=== PATIENT | male | born 1955 | race Caucasian/White ===

== ENCOUNTER 2019-07-02 14:56 | Outpatient (CLI) | payer BC, SELFPAY ==
--- NOTE | ~2019-07-02 | XR_ITS ---
EXAMINATION: XR hip RT 2V w AP pelvis, XR lumbar spine 2-3V DATE: 07/02/2019 15:27 INDICATION: Low back pain radiating down the right hip and leg. TECHNIQUE: 1. Anteroposterior view of the pelvis and anteroposterior and frog-leg lateral views of the right hip . 2. Anteroposterior, lateral views of the lumbar spine and cone-down lateral view of the lumbosacral j unction were obtained. COMPARISON: None. FINDINGS: Lumbar spine: 14 degrees dextroscoliosis measured between T11 and L4. 4 mm retrolisthesis L5 on S1 with fusion acro ss the disc space. Vertebral body heights are normal. Moderate disc height loss at L3-L4 and L4-L5. M ild left-sided disc height loss at L1-L2 and L2-L3. Mild to moderate lower lumbar predominant facet o steoarthritis. Pelvis: Alignment is normal. No fracture or suspected avascular necrosis. Mild osteoarthritis at the bilatera l sacroiliac joints. Bilateral hip joint spaces appear normal. There is chondrocalcinosis at the righ t acetabular labrum. There is ankylosis across the cephalad aspect of the pubic symphysis. IMPRESSION: 1. 14 degree lumbar dextroscoliosis with moderate spondylosis and anterior fusion at L5-S1. 2. Chondrocalcinosis at the right acetabular labrum with symmetric relatively preserved bilateral hip joint spaces. Reviewed, dictated and finalized at location A. TRIC FORK OPERATOR IMPRESSION: 1. 14 degree lumbar dextroscoliosis with moderate spondylosis and anterior fusi on at L5-S1. 2. Chondrocalcinosis at the right acetabular labrum with symmetric relatively p reserved bilateral hip joint spaces.
== END 2019-07-02 14:57 | disposition home or self-care (01) ==
LOC: ANHIMG 15:03
PROVIDERS: PCP Family Medicine; Visit Provider Family Medicine
DX: M47.896 Other spondylosis, lumbar region (principal); Z98.1 Arthrodesis status
CPT/HCPCS: 72100; 73502; 73521

== ENCOUNTER 2019-09-19 08:27 | Outpatient (CLI) | payer BC, SELFPAY ==
--- NOTE | ~2019-09-19 | MR_ITS ---
EXAMINATION: MR lumbar spine wo con DATE: 09/19/2019 09:56 INDICATION: Right leg sciatic pain. TECHNIQUE: Magnetic resonance imaging (MRI) of the lumbar spine was performed without intravenous con trast. Sequences included sagittal T2-weighted FSE, sagittal T2-weighted FS FSE, sagittal T1-weighted FSE, and axial T2-weighted FSE. COMPARISON: Lumbar spine radiographs 07/02/2019, pelvis and right hip radiographs 07/02/2019 FINDINGS: There is 11 degrees dextroscoliosis of lumbar spine. There are Schmorl's nodes at all level s. There is mild chronic anterior wedging of T12, L1, and L2 vertebral bodies, likely physiologic. Th ere is mildly decreased disc height at L3-L4 and L4-L5 and severely decreased disc height at L5-S1. T he distal spinal cord signal intensity is normal. The conus medullaris is at L1. Partially visualized is a cleft of increased T2-weighted signal intensity in right ilium. Partially visualized are cysts in left kidney including peripelvic cysts. The following disc levels are specifically discussed: L1-L2: The disc is bulging. There is mild bilateral facet joint osteoarthritis. There is mild bilater al neural foraminal stenosis. There is mild central canal stenosis. L2-L3: The disc is bulging. There is mild bilateral facet joint osteoarthritis. There is mild bilater al neural foraminal stenosis. There is mild central canal stenosis. L3-L4: The disc is bulging and has an annular fissure. There is moderate right and severe left facet joint osteoarthritis. There is moderate bilateral neural foraminal stenosis. There is mild central ca nal stenosis. L4-L5: The disc is bulging with superimposed right foraminal extrusion. There is mild bilateral facet joint osteoarthritis. There is severe right and moderate left neural foraminal stenosis. There is mi ld central canal stenosis. L5-S1: The disc is bulging and has an annular fissure. There is mild bilateral facet joint osteoarthr itis. There is mild bilateral neural foraminal stenosis. There is mild central canal stenosis. IMPRESSION: 1. Severe lumbar spondylosis. Of note, an extrusion at L4-L5 causes severe right neural foraminal eliane nosis. 2. Lumbar dextroscoliosis. 3. Partially visualized cleft of increased T2-weighted signal intensity in right ilium, which may be a fracture or postsurgical site. Consider noncontrast pelvis CT. Reviewed, dictated and finalized at location A. IMPRESSION: 1. Severe lumbar spondylosis. Of note, an extrusion at L4-L5 causes severe righ t neural foraminal stenosis. 2. Lumbar dextroscoliosis. 3. Partially visualized cleft of increased T2-weighted signal intensity in righ t ilium, which may be a fracture or postsurgical site. Consider noncontrast pel vis CT.
== END 2019-09-19 08:28 | disposition home or self-care (01) ==
PROVIDERS: Visit Provider Orthopaedic Surgery
DX: M54.31 Sciatica, right side (principal); M47.896 Other spondylosis, lumbar region; M41.86 Other forms of scoliosis, lumbar region
CPT/HCPCS: 72148

== ENCOUNTER 2021-06-29 07:20 | Outpatient (CLI) | payer BC, SELFPAY ==
--- NOTE | 2021-06-29 07:32 | ECHO_ITS ---
Patient Info Name: Riky Fong Age: 65 years : 1955 Gender: Male Ht: 74 in Wt: 224 lbs BSA: 2.32 m2 HR: 75 bpm BP: 146 / 82 mmHg Heart Rhythm: Sinus Rhythm Technical Quality: Good Exam Date: 06/29/2021 7:39 AM Exam Location: [facility] Patient Status: Outpatient Admit Date: 06/29/2021 Staff Ordering Physician: Ysabel Hill DO Custom Shoemaker: Chelly Rivera RDCS Attending Provider: Ysabel Hill DO Referring Physician: Liz HAYWARD; Exam Type: CA echo doppler color flow Study Info Indications R06.00 - Dyspnea, unspecified Complete two-dimensional, color flow and Doppler transthoracic echocardiogram is performed. Summary 1. Complete two-dimensional, color flow and Doppler transthoracic echocardiogram is performed. 2. Left ventricular chamber dimension is normal. 3. Left ventricular systolic function is normal, estimated at 60-65%. 4. The left ventricular diastolic function is grade II diastolic dysfunction. 5. E/e' 10 is mildly elevated. 6. There is trace tricuspid valve regurgitation. 7. No pulmonary hypertension, estimated pulmonary arterial systolic pressure is 27 mmHg. 8. There is trace pulmonic regurgitation. Left Ventricle E/e' 10 is mildly elevated. Left ventricular chamber dimension is normal. Left ventricular systolic function is normal, estimated at 60-65%. The left ventricular diastolic function is grade II diastolic dysfunction. Right Ventricle Right ventricular systolic function is normal and with normal TAPSE 2.8 cm. Right ventricular chamber dimension is normal. Left Atria Left atrial chamber dimension is normal. Right Atria Right atrial chamber dimension is normal. Aortic Valve The aortic valve is trileaflet. There is no aortic valve stenosis. There is no aortic valve regurgitation. Pulmonic Valve There is trace pulmonic regurgitation. Mitral Valve There is no mitral valve stenosis. There is no mitral valve regurgitation. Tricuspid Valve There is trace tricuspid valve regurgitation. No pulmonary hypertension, estimated pulmonary arterial systolic pressure is 27 mmHg. Pericardium/Pleural There is no pericardial effusion. Inferior Vena Cava Normal inferior vena cava with >50% collapse upon inspiration consistent with normal right atrial pressure, 5 mmHg. Aorta The aortic root size at the sinus of Valsalva is normal. Left Ventricular Outflow Tract Name Value Normal LVOT 2D LVOT Diameter 2.2 cm LVOT Doppler LVOT Peak Gradient 4 mmHg LVOT Mean Gradient 2 mmHg LVOT VTI 21 cm LVOT VTI/AV VTI Ratio 0.9 LVOT Stroke Volume 76 ml LVOT CO 4.9 l/min LVOT CI 2.1 l/min/m2 Pulmonic Valve Name Value Normal RVOT Doppler
== END 2021-06-29 07:21 | disposition home or self-care (01) ==
PROVIDERS: PCP Family Medicine; Visit Provider Family Medicine
DX: R06.00 Dyspnea, unspecified (principal)
CPT/HCPCS: 93306

== ENCOUNTER 2021-08-01 09:00 | Outpatient (CLI) | payer BC, SELFPAY ==
--- NOTE | 2021-08-01 11:00 | NEURO_ITS ---
Impression: # Complains of numbness of hands. # Bilateral Carpal Tunnel Syndrome, sensory more than motor. # No ulnar neuropathy. # Needle/EMG exam minimally neurogenic. Nerve Conduction Studies Anti Sensory Summary Table Stim Site NR Peak (ms) P-T Amp (?V) Site1 Site2 Delta-P (ms) Dist (cm) Vinicio (m/s) Left Median Anti Sensory (2-3nd Digit) Wrist 5.3 13.7 Wrist 2-3nd Digit 5.3 14.0 26 Wrist 5.7 9.5 Wrist 2-3nd Digit 5.3 14.0 26 Right Median Anti Sensory (2-3nd Digit) Wrist 6.2 19.2 Wrist 2-3nd Digit 6.2 14.0 23 Wrist 6.9 29.0 Wrist 2-3nd Digit 6.2 14.0 23 Left Radial Anti Sensory (Base 1st Digit) Wrist 2.7 5.8 Wrist Base 1st Digit 2.7 0.0 Right Radial Anti Sensory (Base 1st Digit) Wrist 2.9 11.0 Wrist Base 1st Digit 2.9 0.0 Left Ulnar Anti Sensory (5th Digit) Wrist 3.8 68.8 Wrist 5th Digit 3.8 14.0 37 Right Ulnar Anti Sensory (5th Digit) Wrist 3.4 43.0 Wrist 5th Digit 3.4 14.0 41 Motor Summary Table Stim Site NR Onset (ms) O-P Amp (mV) Site1 Site2 Delta-0 (ms) Dist (cm) Vinicio (m/s) Left Median Motor (Abd Poll Brev) Wrist 4.8 1.9 Elbow Wrist 5.8 30.0 52 Elbow 10.6 1.6 Right Median Motor (Abd Poll Brev) Wrist 4.4 1.9 Elbow Wrist 7.1 31.0 44 Elbow 11.5 2.1 Left Ulnar Motor (Abd Dig Minimi) Wrist 3.5 5.9 A Elbow Wrist 6.0 33.0 55 A Elbow 9.5 4.3 Right Ulnar Motor (Abd Dig Minimi) Wrist 3.3 5.4 A Elbow Wrist 5.8 31.0 53 A Elbow 9.1 4.0 F Wave Studies NR F-Lat (ms) L-R F-Lat (ms) Left Median (Mrkrs) (Abd Poll Brev) 35.02 0.59 Right Median (Mrkrs) (Abd Poll Brev) 35.61 0.59 Left Ulnar (Mrkrs) (Abd Dig Min) 33.33 0.53 Right Ulnar (Mrkrs) (Abd Dig Min) 33.86 0.53 EMG Side Muscle Nerve Root Ins Act Fibs Amp Dur Recrt Comment Right 1stDorInt Ulnar C8-T1 Nml Nml Nml Nml Nml Right Ext Indicis Radial (Post Int) C7-8 Nml Nml Nml Nml Nml Right Ext Digitorum Radial (Post Int) C7-8 Nml Nml Nml Nml Nml Right BrachioRad Radial C5-6 Nml Nml Nml Nml Nml Right PronatorTeres Median C6-7 Nml Nml Nml Nml Nml Right Abd Poll Brev Median C8-T1 Nml Nml Nml >12ms Reduced Left 1stDorInt Ulnar C8-T1 Nml Nml Nml Nml Nml Left Ext Indicis Radial (Post Int) C7-8 Nml Nml Nml Nml Nml Left Ext Digitorum Radial (Post Int) C7-8 Nml Nml Nml Nml Nml Left BrachioRad Radial C5-6 Nml Nml Nml Nml Nml Left PronatorTeres Median C6-7 Nml Nml Nml Nml Nml Left Abd Poll Brev Median C8-T1 Nml Nml Nml >12ms Reduced Right ABD Dig Min Ulnar C8-T1 Nml Nml Nml Nml Nml Right Abd Poll Long Radial (Post Int) C7-8 Nml Nml Nml Nml Nml Left ABD Dig Min Ulnar C8-T1 Nml Nml Nml Nml Nml Left Abd Poll Long Radial (Post Int) C7-8 Nml Nml Nml Nml Nml MTDD
== END 2021-08-01 09:01 | disposition home or self-care (01) ==
PROVIDERS: PCP Family Medicine; Visit Provider Internal Medicine Cardiovascular Disease
DX: R20.0 Anesthesia of skin (principal); G56.03 Carpal tunnel syndrome, bilateral upper limbs
CPT/HCPCS: 95886; 95911

== ENCOUNTER 2021-08-04 14:42 | Outpatient (CLI) | payer BC, SELFPAY ==
--- NOTE | 2021-08-07 10:44 | WPDPFTINT ---
PFT Procedure Performed PFT Procedure Performed Plethysmography (Lung Vol) Diffusing Cap (DLCO) Flow Vol Loop Spirometry w/o Bronchodil PFT Interpretation Lung volumes were measured with the body plethysmography method. Lung volumes are unremarkable. Spirometry showed normal expiratory flow rates and a normal FEV1 to FVC ratio 75%. No post bronchodilator study was carried out. Lung diffusion capacity is within the normal range at 94% predicted. The flow volume loop is unremarkable. Impression: Spirometry, lung volumes, and lung diffusion capacity all within the normal range.
== END 2021-08-04 14:43 | disposition home or self-care (01) ==
PROVIDERS: PCP Family Medicine; Visit Provider Internal Medicine Cardiovascular Disease
DX: R06.00 Dyspnea, unspecified (principal)
CPT/HCPCS: 94375; 94726; 94729

== ENCOUNTER 2021-11-15 02:04 | Day surgery (SDC) | payer BC, SELFPAY ==
[2021-11-14 11:07] VITALS: BMI 30.4
[2021-11-15] VITALS (26 sets, daily range): BP systolic 126–151; BP diastolic 67–86; PULSE 61–83; RESP 14–18; TEMP 36.4–36.8; O2SAT 96–100; BMI 31.0; BMI 31.7
[2021-11-15 07:27] LABS: Basophils Percent Auto 0.6 % (0.2-1.2); Eosinophils Absolute Auto 0.2 K/mm3 (0-0.3); Eosinophils Percent Auto 3.1 % (0-4.4); Hematocrit 45.3 % (42.0-52.0); Immature Granulocyte Absolute 0.04 K/mm3 (0.00-0.031); Immature Granulocyte Percent A 0.7 % (0-0.5); Lymphocytes Absolute Auto 1.35 K/mm3 (0.9-3.2); Lymphocytes Percent Auto 24.9 % (18.3-44.2); Mean Corpuscular HGB Conc 33.1 g/dl (32-36); Mean Corpuscular Hemoglobin 33.4 pg (26-34); Mean Corpuscular Volume 100.9 fl (80-100); Mean Platelet Volume 9.8 fl (7.4-10.4); Monocytes Absolute Auto 0.5 K/mm3 (0.1-0.6); Monocytes Percent Auto 9.2 % (2.6-8.5); Neutrophils Absolute Auto 3.3 K/mm3 (1.3-6.7); Neutrophils Percent Auto 61.5 % (45.5-73.1); Platelet Count Result 176 k/mm3 (150-375); Red Blood Count 4.49 M/mm3 (4.6-6.20); White Blood Count 5.4 K/mm3 (4.5-10.0)
[2021-11-15] MEDS: SODIUM CHLORIDE 0.9% IV 500 ML 100 ML IV CONT (07:30)
[2021-11-15 07:50] LABS: Anion Gap 5 mmol/L (8-16); Blood Urea Nitrogen 20 mg/dL (9-20); Calcium 9.1 mg/dL (8.4-10.2); Carbon Dioxide 28 mmol/L (22-30); Chloride 108 mmol/L (98-107); Estimated CRCL calculation 78 ml/min; Estimated Glomerular Filt Rate > 60; Glucose 105 mg/dL (65-110); Potassium 4.1 mmol/L (3.4-5.0); Sodium 141 mmol/L (137-145)
--- NOTE | 2021-11-15 08:28 | WPDHPUPDATE1 ---
History and Physical Update Update Date/Time: 11/15/21 08:28 History and Physical has been reviewed, including an updated exam of the patient. There are NO changes in the patient's condition. Risks, benefits, and alternatives have been discussed and questions answered. Patient agrees to proceed with procedure.
--- NOTE | 2021-11-15 08:29 | WPDMODSED ---
Moderate Sedation Note-Pt Data Patient Data Diagnosis: Abnormal stress test, anginal equivalent Present Complaint: none Procedure to be performed/Plan: left heart catheterization with selective left and right coronary angiography with left ventriculography and hemodynamics and possible percutaneous intervention and stent implantation. Allergies Allergy/AdvReac Type Severity Reaction Status Date / Time No Known Allergies Allergy Unknown Unknown Uncoded 11/15/21 07:19 Home Medications Medication Instructions Recorded Confirmed Type albuterol sulfate 90 mcg/actuation 2 inh inhalation Q4H PRN shortness 06/16/21 11/14/21 Rx aerosol inhaler of breath or wheezing #8.5 grams metoprolol succinate 25 mg 25 mg PO DAILY #90 tabs 07/04/21 11/14/21 Rx tablet,extended release 24 hr allopurinol 100 mg tablet 100 mg PO DAILY 11/14/21 11/14/21 History aspirin 81 mg tablet 81 mg PO DAILY 11/14/21 11/14/21 History ezetimibe 10 mg-simvastatin 20 mg 1 tablet PO DAILY 11/14/21 11/14/21 History tablet losartan 25 mg tablet 25 mg PO DAILY 11/14/21 11/14/21 History meloxicam 15 mg tablet 15 mg PO DAILY 11/14/21 11/14/21 History tamsulosin 0.4 mg capsule 0.4 mg PO HS 11/15/21 11/15/21 History Current Medications: Active Medications Sodium Chloride (Normal Saline Iv) 500 mls @ 100 mls/hr IV CONT .Q5H KAREN Sedation/Anesthesia: No previous sedation/anesthesia problems (including family history). [facility] Past Medical History Medical History Abnormal colonoscopy Hyperlipidemia Hypertension Hypertension Hypertension Prostate enlargement Prostatitis Testicular cancer Surgical History Surgical History History of orchiectomy Family History Family History Father Acute myocardial infarction, Onset Age: 46 Family history of cardiovascular disease Sibling Family history of lymphoma, Onset Age: 31 Social History Social History Smoking status: Never smoker Second hand tobacco smoke exposure: No Alcohol intake: current Drinks per week: 20 Alcohol use details: 2-3 drinks each day (beer). denies any history of withdrawal. can stop for a few days for procedures. 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 Spiritual care concerns: No Mod Sed Physical Exam Physical Exam Pre Procedural Exam: Normal: Appearance, Eyes, Ears, Nose, Neck ( supple, normal range of motion), Throat ( posterior hypopharynx clear, nonerythematous), Airway ( normal anatomy, no obstruction), Lungs ( Clear to auscultation bilaterally), Heart Size, Heart Rate, Heart Rhythm, Neuro Exam, Abdomen, Liver, Extremities and Skin Hours since solid foods: 12 Hours since liquid intake: 12 Mallampati Classification: class II Internal Medicine - PN: Obj Da Vital Signs Vital Signs: Vital Signs - 24 hr 11/15/21 07:21 Temperature 36.4 C L Pulse Rate 74 Respiratory Rate 16 Blood Pressure 146/79 H Pulse Oximetry 99 Oxygen Delivery Room Air Meds/Results Medications: Active Medications Generic Name Dose Route Start Last Admin Trade Name Freq PRN Reason Stop Dose Admin Sodium Chloride 500 mls @ 100 mls/hr 11/15/21 07:00 Normal Saline Iv IV CONT .Q5H KAREN Labs CBC & Chem 7: 11/15/21 07:17 11/15/21 07:17 Labs: Laboratory Results - last 24 hr 11/15/21 11/15/21 07:17 07:17 WBC 5.4 RBC 4.49 L Hgb 15.0 Hct 45.3 MCV 100.9 H MCH 33.4 MCHC 33.1 RDW 13.0 Plt Count 176 MPV 9.8 Immature Gran % (Auto) 0.7 H Neut % (Auto) 61.5 Lymph % (Auto) 24.9 Pope % (Auto) 9.2 H Eos % (Auto) 3.1 Baso % (Auto) 0.6 Lymph # (Auto) 1.35 Pope # (Auto) 0.5 Eos
--- NOTE | 2021-11-15 08:31 | PM.OP ---
Procedure Note - Brief Procedure Note - Brief Date of procedure: 11/15/21 Pre-op diagnosis: dyspnea on exertion, abonormal stress test anginal equivalent, abnormal stress test Procedure performed: left heart catheterization with selective left and right coronary angiography with left ventriculography and hemodynamics Description of procedure: BRIEF HISTORY OF PRESENT ILLNESS: Patient is a pleasant 66-year-old male with a past medical history significant hypertension, hyperlipidemia and premature family history of atherosclerosis with progressive fatigue exertional dyspnea on activity limitation with abnormal EKG response consistent with ischemia but with normal perfusion imaging concerning for possible balanced ischemia given progressive limiting symptoms subsequently referred for left heart catheterization for delineation of his coronary anatomy. PROCEDURES PERFORMED: 1. Left heart catheterization 2. Selective left and right coronary angiography 3. Left ventricular and hemodynamics 4. Moderate/conscious sedation administration CATHETERS UTILIZED: Left coronary system- 5 [place] JL4 catheter Right coronary system- 5 [place] JR4 catheter Left ventricular hemodynamics- 5 [place] angled pigtail catheter PROCEDURE IN DETAIL: After verbal and written informed consent was obtained the patient, risks, benefits, and alternatives explained in detail the patient agreed to proceed with the plan of care as outlined above. The patient was subsequently brought to the cardiac catheterization lab, placed on the cardiac catheterization table, and prepped and draped in the usual sterile fashion. Utilizing approximately 11cc of 1% subcutaneous Lidocaine, the right groin was then locally anesthetized. Utilizing the modified Seldinger technique, a 5 [place] arterial vascular access sheath was inserted in the right common femoral artery easily and without complications. Through this access, coronary angiography was subsequently obtained in multiple standard re-projections. Following this, a 5 [place] angled pigtail catheter was advanced retrograde across aortic valve into the cavity of the left ventricle. Left ventriculography was not performed in the interest of sparing contrast and pullback across aortic valve was subsequently recorded. The vascular access sheath and angiographic catheters were flushed before and after catheter exchanges. At the conclusion of the diagnostic portion of the procedure, all angiographic guidewires and catheters were removed and the 5 [place] arterial vascular access sheath remained in place pending decision to proceed with intervention with Dr. Aguirre (Interventional Cardiology). There no complications noted at the conclusion of the diagnostic portion of the study. MODERATE SEDATION/ANESTHESIA ADMINISTRATION: Patient reports no prior problems with sedation/anesthesia. Please see pre-sedation noted for physical examination documentation. Sedation start time was 0842 and end time was 0916 for a total intra-service/procedure face-face time of 34 minutes. A total of 1 mg intravenous Versed and a total of 50mcg intravenous Fentanyl was administered for moderate sedation. Moderate sedation was administered by qualified/certified observer Darius Howell RN under my supervision with intra-procedure [id number] observation and management throughout the entirety of the procedure. There were no other issues or complications and patient tolerated the procedure well. See post-anesthesia documentation. Anesthesia: local and other ( ) Surgeon: Garrison Renae MD Estimated blood loss (mL): 10 Complications: No immediate complications Condition: Stable Disposition: Observation Findings: CORONARY ANGIOGRAPHY: The LEFT MAIN arose from the left coronary cusp and revealed a proximal 10% stenosis. The left main then bifurcated into the left anterior descending artery and circumflex coronary artery. LEFT ANTERIOR DESCENDING ART
--- NOTE | 2021-11-15 10:31 | P.PCNCC_ITS ---
Cardiac Cath Procedure Note Date of procedure:: 11/15/21 Performing physician:: Quentin Aguirre MD Indication:: exertional angina / high-grade LAD disease Brief clinical history:: this is a 66-year-old man with a history of exertional chest pain and dyspnea compatible with angina. He just underwent diagnostic angiography by Dr. Renae finding high-grade disease in the LAD starting from the ostium and bridging over the origin of the major diagonal branch in addition to this there is 90% ostial stenosis of the diagonal. Because of this finding PCI of this has been recommended. Procedure Procedure performed:: PTCA and stenting of the ostial to proximal LAD as well as PTCA and stenting of the major diagonal Sedation/Medication given:: fentanyl 50 mg Versed 1 mg case start time 916 a.m. case end time 10:18 a.m. 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 I placed the access wire and the femoral artery and exchanged the sheath to a 7 [place] vascular sheath. Following this the patient was anticoagulated with a bolus and infusion of Angiomax and received 180 mg of Brilinta and 325 mg of aspirin. I engaged the left main coronary artery using a 7 [place] CLS 3.5 guiding catheter. The LAD was then wired using a 0.014 BMW coronary guidewire. A 2nd BMW wire was then used to access and wire the diagonal branch. Following this the LAD lesion was pre-dilated using a 3 x 20 mm Dariel Balloon. Angiographically the disease in the LAD was actually extending back to the ostium of the vessel which was not appreciated on the diagnostic angiograms. The LAD balloon was then withdrawn and the diagonal branch ostium was pre-dilated using a 2.5 x 15 mm balloon of the same type. The diagonal ostium was then stented using a 2.75 by 15 mm resolute cher stent. Following this the LAD was then dilated once again using a 2.5 x 15 mm Dariel balloon followed by the 3 x 20 mm balloon used previously. Lastly the LAD was stented from the ostium down to past the origin of the diagonal using a 3.0 x 22 mm resolute cher stent. Care was taken to position the stent both in the working cranial view as well as in the [place] caudal view tube position the beginning of the stent at the LAD ostium. Following stent deployment the LAD was widely patent from the ostium down to past the diagonal branch with no residual stenosis disruption or dissection. The diagonal branch also remained patent with PAL 3 flow. The guidewires were then removed and the procedure was terminated. This 7 [place] sheath will be sutured into position and pulled 2 hours after the Angiomax infusion is completed. Findings:: As above Conclusion:: 1. successful somewhat challenging but uncomplicated PCI of the ostium to proximal LAD and the origin of the diagonal branch using the 2 Resolute Cher drug-eluting stents described above with favorable angiographic outcome. 2. Patient has been started on aspirin and Brilinta dual anti-platelet therapy should be continued for the balance of 1 year minimum Quentin Aguirre MD [facility]
--- NOTE | 2021-11-15 10:43 | ECG_ITS ---
Measurements Intervals [place] Rate: 70 P: 47 DC: 142 QRS: 28 QRSD: 90 T: 55 QT: 395 QTc: 427 Interpretive Statements SINUS RHYTHM NORMAL ECG NO PREVIOUS ECG AVAILABLE FOR COMPARISON Electronically Signed On 11-15-2021 14:53:13 CDT by Garrison Renae M.D.
[2021-11-15] MEDS: SODIUM CHLORIDE 0.9% IV 1,000 ML 125 ML IV CONT (13:55)
--- NOTE | 2021-11-15 14:00 | SUR.PHASEII ---
HEMOSTASIS ACHIEVED TO R. GROIN PUNCTURE SITE AT 1300. DRESSING TO SITE C/D/I. BEDREST X 8 HOURS POST HEMOSTASIS UNTIL 2100. IVF'S RUNNING ORDERED AT 125ML/HR. 18FR. GRIFFITHS INTACT AND DRAINING CLEAR YELLOW URINE; PLACED AT 1130 SINCE UNABLE TO VOID IN URINAL ON BEDREST. POST PCI EKG COMPLETED AT 1046. HAS TOLERATED BEDREST WELL. DENIES PAIN OR SOB. DR. CHEN HERE TO SEE PT. PHASE II RECOVERY ENDS AT THIS TIME,1400. STATUS CHANGED TO EXTENDED RECOVERY POST C W/ PCI NOW. WILL REMAIN IN INSURANCE AGENTS SUPERVISOR 7 AT THIS TIME EXTENDED RECOVERY PT. SEE PCS FOR FURTHER DOCUMENTATION. WILL CONTINUE TO MONITOR.
--- NOTE | 2021-11-15 14:01 | ADMGEN ---
This patient, Riky Fong, was admitted to IMU STATUS, EXTENDED RECOVERY POST C W/ PCI FROM PHASE II RECOVERY AT 1401. REMAINS IN ARCHITECT NAVAL 7 AT THIS TIME. Patient/family oriented to hospital policies and general routines including ID bracelet, bed and alarms, visiting hours, pain management, procedures, bathroom and other care routines, personal items, smoking policy, room service/diet, and visiting hours. Information on how to activate the Rapid Response Team has been discussed. Patient/Family are encouraged to report perceived risks to care and to ask questions if they do not understand what they are told or what they should do.
--- NOTE | 2021-11-15 18:08 | PC.NURSE ---
Patient called out around 175 to report to RN that his left foot starting just above the ankle felt numb and like he had a cast on it. He reports that his right foot has felt similar since not being able to move it post cardiac catheterization and stent placement today but the left foot just started having more noticable symptoms this evening. Patient able to move both feet and plantar/dorsiflex. He had diminished sensation in bilateral feet and not able to distinguish sharp or dull sensation very well upon exam. Right DP pulse 2+ right PT 2-3+, left post tib 3+, left DP 1+bilaterally (pulss dopplers at 2+ on left and no changes compared to previous exam per Nette Gramajo RN. Toes and top of foot cool, slightly pale but unchanged, cap refill delayed but unchanged. Pulses did seem to improve with laying patient back some after he had been sitting up 30 degrees. Patient's was unable 180 Dr. Oc sandoval. He would like us to try to reposition patient after he finishes his meal to see if symptoms improve. Neurovascular checks q 1 hr x 2 hours then q 2 hours and to call with any changes. He would like ABIs order bilaterally for tomorrow AM.
--- NOTE | 2021-11-15 18:50 | PC.NURSE ---
REPORT CALLED TO ITZ PILLAI RN IN IMU. PT. IS TO TRANSFER TO IMU 203.1 VIA BED TO CONTINUE EXTENDED RECOVERY STAY POST [facility] W/ PCI TODAY. BEDREST CONTINUES UNTIL 2099. NO CHANGE IN STATUS OF R. GROIN. DRESSING C/D/I. PULSES, TEMPERATURE, SENSATION HAS RETURNED TO PT'S BASELINE IN BOTH R. AND LEFT FEET AFTER HOB LOWERED TO APPROX 15 DEGREES FROM NEAR 30 DEGREES. IVF'S CONTINUE AT 125ML/HR ORDERED. VOICES NO C/O CP OR SOB. VSS. BOTH PT. AND AWARE OF PENDING TRANSFER FOR OVERNIGHT STAY.
--- NOTE | 2021-11-15 19:15 | PC.NURSE ---
TRANSFERRED TO IMU 203.1 VIA BED ON TRANSPORT MONITOR AT THIS TIME. BEDSIDE REPORT UPDATES GIVEN TO ODALIS Blair RN ON ARRIVAL. ASSESSED R. GROIN STATUS ON ARRIVAL AND PALPATED BOTH R. AND L. FEET PULSES, TEMP WITH ODALIS BLANCO. ALL QUESTIONS ANSWERED. PT. AND VOICE NO CONCERNS.
[2021-11-15] MEDS: SIMVASTATIN 20 MG TABLET 40 MG PO (20:53)
[2021-11-15] MEDS: TAMSULOSIN HCL 0.4 MG CAPSULE PO (20:53)
[2021-11-15] MEDS: TICAGRELOR 90 MG TABLET PO (20:53)
[2021-11-16] VITALS (8 sets, daily range): BP systolic 121–155; BP diastolic 64–72; PULSE 66–77; RESP 18; TEMP 36.7–37.1; O2SAT 97–99
--- NOTE | 2021-11-16 05:11 | ECG_ITS ---
Measurements Intervals [place] Rate: 79 P: 44 IN: 139 QRS: 38 QRSD: 94 T: 64 QT: 384 QTc: 442 Interpretive Statements SINUS RHYTHM NORMAL ECG COMPARED TO ECG 11/15/2021 10:46:39 NO CHANGE Electronically Signed On 11-17-2021 16:19:15 CDT by Quentin Aguirre M.D.
[2021-11-16] MEDS: EZETIMIBE 10 MG TABLET PO (08:14)
[2021-11-16] MEDS: ASPIRIN 81 MG ENTERIC TABLET PO (08:14)
[2021-11-16] MEDS: METOPROLOL SUCCINATE EXT REL 25 MG TABCR PO (08:14)
[2021-11-16] MEDS: TICAGRELOR 90 MG TABLET PO (08:14)
[2021-11-16] MEDS: MELOXICAM 7.5 MG TABLET 15 MG PO (08:14)
[2021-11-16] MEDS: LOSARTAN POTASSIUM 25 MG TABLET PO (08:14)
--- NOTE | 2021-11-16 08:36 | PM.PNCARD ---
Progress Note: A&P Assessment and Plan (1) CAD (coronary artery disease): Qualifiers: Coronary Disease-Associated Artery/Lesion type: [place] artery [place] vs. transplanted heart: hughes heart Associated angina: without angina Qualified Code(s): I25.10 - Atherosclerotic heart disease of hughes coronary artery without angina pectoris Code(s): I25.10 - Atherosclerotic heart disease of [place]hes coronary artery without angina pectoris Status: Acute Assessment and Plan: Status post 3.0 x 22 mm resolute cher drug-eluting stent ostial LAD to proximal portion of mid segment jailing off diagonal initially stented with 2.75 x 15 mm resolute cher drug-eluting stent without complication. Continue dual antiplatelet therapy with aspirin 81 mg daily and Brilinta 90 mg twice daily without interruption. Cardiac rehabilitation as an outpatient in 1 month. Continue statin indefinitely Zetia for now. Continue beta-reuben and ARB. Counseled on risks, benefits with regards to medical therapy and importance of compliance due to risk for stent thrombosis and or acute myocardial infarction and associated complications. Patient verbalized understanding. Patient ambulating without difficulty overnight. No groin site complications. Patient stable for discharge home today follow-up in 1 month. Post catheterization precautions will be reviewed in detail once again. Notify the office with any questions or concerns. Counseled previously on potential side effects with shortness breath with Brilinta and how to discern the difference and report concerns. Patient agrees. (2) Hypertension: Qualifiers: Hypertension type: primary hypertension Qualified Code(s): I10 - Essential (primary) hypertension Code(s): I10 - Essential (primary) hypertension Status: Acute Assessment and Plan: Reasonable control. Continue present medical therapy. (3) Hyperlipidemia: Qualifiers: Hyperlipidemia type: mixed hyperlipidemia Qualified Code(s): E78.2 - Mixed hyperlipidemia Code(s): E78.5 - Hyperlipidemia, unspecified Status: Acute Assessment and Plan: Continue simvastatin and Zetia for now. Goal LDL less than 70. (4) LILIANE on CPAP: Code(s): G47.33 - Obstructive sleep apnea (adult) (pediatric); Z99.89 - Dependence on other enabling machines and devices Status: Acute Assessment and Plan: Compliance with CPAP. (5) Neuropathy: Code(s): G62.9 - Polyneuropathy, unspecified Status: Acute Assessment and Plan: Patient weight of numbness and paresthesias in the left foot resolved with position changes. His regular pulses, no evidence of vascular compromise or arterial insufficiency. Therefore, arterial Dopplers will be discontinued given the absence of preceding claudication and resolution of symptoms with position change with neuropathic symptoms brought on by prolonged bed rest status post percutaneous intervention. Subjective Date/time seen: Date of service: 11/16/21 08:36 Follow-up status post PCI to LAD Patient complained of numbness in left foot last night resolved with position change he feels is related to neuropathy. No pain in lower extremities. No claudication. No chest pain, shortness of breath, dizziness, palpitations or lightheadedness. No other issues overnight. No pain in right groin site. Review of Systems Review of Systems: Numbness in left foot resolved with position change no claudication, shortness of breath, chest pain. No fevers or chills. All systems reviewed & are unremarkable except as noted in HPI and below Constitutional: Constitutional: Reports as per HPI and Reports no additional constitutional complaints Eyes: Eyes: Reports as per HPI and Reports no additional eye complaints ENT: Reports system reviewed and no additional complaints, except as documented and Reports as per HPI Cardiovascular: Cardiovascular: Reports as p
--- NOTE | 2021-11-16 10:09 | PM.DS ---
DS: Admitting Diagnosis Discharge Date 11/16/2021 Admitting Diagnosis CAD DS: Discharge Diagnosis Discharge Diagnosis (1) CAD (coronary artery disease): Qualifiers: Associated angina: without angina Coronary Disease-Associated Artery/Lesion type: [place] artery [place] vs. transplanted heart: [place] heart Qualified Code(s): I25.10 - Atherosclerotic heart disease of [place] coronary artery without angina pectoris Code(s): I25.10 - Atherosclerotic heart disease of [place] coronary artery without angina pectoris Status: Acute Assessment and Plan: Status post 3.0 x 22 mm resolute cher drug-eluting stent ostial LAD to proximal portion of mid segment jailing off diagonal initially stented with 2.75 x 15 mm resolute cher drug-eluting stent without complication. Continue dual antiplatelet therapy with aspirin 81 mg daily and Brilinta 90 mg twice daily without interruption. Cardiac rehabilitation as an outpatient in 1 month. Continue statin indefinitely Zetia for now. Continue beta-reuben and ARB. Counseled on risks, benefits with regards to medical therapy and importance of compliance due to risk for stent thrombosis and or acute myocardial infarction and associated complications. Patient verbalized understanding. Patient ambulating without difficulty overnight. No groin site complications. Patient stable for discharge home today follow-up in 1 month. Post catheterization precautions will be reviewed in detail once again. Notify the office with any questions or concerns. Counseled previously on potential side effects with shortness breath with Brilinta and how to discern the difference and report concerns. Patient agrees. (2) Hypertension: Qualifiers: Hypertension type: primary hypertension Qualified Code(s): I10 - Essential (primary) hypertension Code(s): I10 - Essential (primary) hypertension Status: Acute Assessment and Plan: Reasonable control. Continue present medical therapy. (3) Hyperlipidemia: Qualifiers: Hyperlipidemia type: mixed hyperlipidemia Qualified Code(s): E78.2 - Mixed hyperlipidemia Code(s): E78.5 - Hyperlipidemia, unspecified Status: Acute Assessment and Plan: Continue simvastatin and Zetia for now. Goal LDL less than 70. (4) LILIANE on CPAP: Code(s): G47.33 - Obstructive sleep apnea (adult) (pediatric); Z99.89 - Dependence on other enabling machines and devices Status: Acute Assessment and Plan: Compliance with CPAP. (5) Neuropathy: Code(s): G62.9 - Polyneuropathy, unspecified Status: Acute Assessment and Plan: Patient weight of numbness and paresthesias in the left foot resolved with position changes. His regular pulses, no evidence of vascular compromise or arterial insufficiency. Therefore, arterial Dopplers will be discontinued given the absence of preceding claudication and resolution of symptoms with position change with neuropathic symptoms brought on by prolonged bed rest status post percutaneous intervention. DS: Summary Hospital Course Hospital Course: Admitted yesterday following elective coronary angiogram and PCI. Remained stable throughout and following procedure. No complications. Has been placed on DAPT. Stable this morning and appropriate for hospital discharge. Time Spent with Patient Time attestation: Total time spent providing and/or coordinating discharge services: Exam Narrative: General: Well developed, alert and oriented x3. No apparent distress, comfortable, pleasant, and cooperative. Head: atraumatic, normocephalic Eyes: EOM intact, sclerae anicteric, conjunctivae unremarkable Ears/Nose: external inspection of ears and nose were grossly normal Mouth/Throat: oral mucosa pink and moist Neck: supple, normal range of motion, no jugular venous distention or carotid bruits, thyroid nonpalpable, trachea midline. Cardiac: Regular rat
== END 2021-11-16 11:44 | disposition home or self-care (01) ==
LOC: ANHCATHLAB 06:54 → ANHCPC 14:11 → ANHIMU 19:58
PROVIDERS: Specialist; PCP Family Medicine; Visit Provider Internal Medicine Cardiovascular Disease
PROC: 4A023N7 Measurement of Cardiac Sampling and Pressure, Left Heart, Percutaneous Approach (ICD-10-PCS; CPT 93452; principal; 2021-11-15 08:30)
DX: I25.10 Atherosclerotic heart disease of native coronary artery without angina pectoris (principal); R06.00 Dyspnea, unspecified; I10 Essential (primary) hypertension; Z79.51 Long term (current) use of inhaled steroids; G47.33 Obstructive sleep apnea (adult) (pediatric); G62.9 Polyneuropathy, unspecified; E78.2 Mixed hyperlipidemia; Z82.49 Family history of ischemic heart disease and other diseases of the circulatory system; N41.9 Inflammatory disease of prostate, unspecified; Z79.82 Long term (current) use of aspirin; N40.0 Benign prostatic hyperplasia without lower urinary tract symptoms; Z85.47 Personal history of malignant neoplasm of testis
CPT/HCPCS: 36415; 80048; 85025; 93005; 93458; A9270; C1725; C1769; C1874; C1887; C1894; C9600; C9601; J0583; J1644; J2250; J3010; J7030; J7040

== ENCOUNTER 2022-02-16 14:04 | Outpatient (CLI) | payer BC, SELFPAY ==
--- NOTE | ~2022-02-16 | CT_ITS ---
EXAMINATION: CT abdomen pelvis wo/w con DATE: 02/16/2022 14:56 INDICATION: Microscopic hematuria TECHNIQUE: Computed tomography (CT) of the abdomen and pelvis was performed without and subsequently with 130 CC Omnipaque 350 intravenous contrast. Automated exposure control and iterative reconstructi on technique were employed. Exam dose: 1500.36 mGy-cm total exam DLP. COMPARISON: None. FINDINGS: New infiltrate or consolidation at the lung bases. Probable small calcified granuloma, left lower lobe. Normal heart size. No pericardial or pleural effusion. There are 2 subtle nonspecific ill-defined areas of diminished attenuation along the periphery of the right hepatic lobe, measuring 11 mm (series 7 image 54) and approximately 14 mm (image 68). No prior examination is available for comparison. Differential diagnosis includes hemangiomas, cysts, focal a reas of fat infiltration, less likely metastases. Consider hepatic MR examination. No hepatic space-o ccupying mass lesion is noted otherwise. The gallbladder is unremarkable. No bile duct or pancreatic duct dilatation. No pancreatic mass lesio n or calcification is noted. Normal splenic size. Normal morphology of the adrenal glands. No urinary tract calculus or hydroureteronephrosis. 1.5 cm right renal cyst. There are multiple left parapelvic and exophytic mid posterior renal cysts, measuring up to 4 cm or more maximal dimension. Prostate enlargement and multiple prostate calcifications. There is moderate diffuse thickening of th e urinary bladder wall, likely due to the prostate enlargement. There are innumerable diverticula of the sigmoid and descending colon and numerous diverticula of the transverse and to a lesser extent ascending colon. No CT evidence of diverticulitis. No bowel obstru ction or significant abnormal bowel wall thickening, pneumatosis or intraperitoneal free air is detec clarence. Diffuse idiopathic skeletal hyperostosis of the thoracic spine. Multilevel degenerative disc disease of the lumbar spine, particularly severe at L5-S1. No suspicious osteolytic or osteoblastic lesions are noted. IMPRESSION: Bilateral renal cysts No urinary tract calculus or hydroureteronephrosis Prostate enlargement and calcifications Diverticulosis of the colon; no CT evidence of diverticulitis 2. Subtle nonspecific areas of diminished attenuation of the right hepatic lobe, measuring 11 and 14 mm; consider MRI liver examination Reviewed, dictated and finalized at [facility]. Reviewed, dictated and finalized at location [facility]. IMPRESSION: Bilateral renal cysts No urinary tract calculus or hydroureteronephrosis Prostate enlargement and calcifications Diverticulosis of the colon; no CT evidence of diverticulitis 2. Subtle nonspecific areas of diminished attenuation of the right hepatic lobe , measuring 11 and 14 mm; consider MRI liver examination
[2022-02-16 14:37] LABS: Estimated Glomerular Filt Rate > 60
== END 2022-02-16 14:05 | disposition home or self-care (01) ==
PROVIDERS: PCP Family Medicine; Visit Provider Physician Assistant
DX: R31.29 Other microscopic hematuria (principal); N28.1 Cyst of kidney, acquired; N40.0 Benign prostatic hyperplasia without lower urinary tract symptoms; K57.90 Diverticulosis of intestine, part unspecified, without perforation or abscess without bleeding; R93.2 Abnormal findings on diagnostic imaging of liver and biliary tract
CPT/HCPCS: 74178; Q9967

== ENCOUNTER 2022-03-05 09:39 | Outpatient (CLI) | payer BC, SELFPAY ==
--- NOTE | ~2022-03-05 | MR_ITS ---
EXAMINATION: MR abdomen wo/w con DATE: 03/05/2022 10:57 INDICATION: Nonspecific liver lesions on prior CT TECHNIQUE: Magnetic resonance imaging (MRI) of the abdomen was performed without and with 20 mL Multi felecia intravenous contrast. Sequences included coronal T2-weighted SS-FSE, coronal and axial FS 2D-F IESTA, axial STIR FSE, axial T2-weighted SS-FSE, axial T2-weighted FS SS-FSE, axial diffusion-weighte d SE, axial dual-echo T1-weighted FSPGR, and axial and coronal T1-weighted LAVA. Postcontrast axial T 1-weighted LAVA images were obtained in a time course. Postcontrast coronal T1-weighted LAVA images w ere obtained. COMPARISON: CT dated 02/16/2022 FINDINGS: Heart size is normal. No pericardial or pleural effusion. Again seen are couple small lesions in the right hepatic lobe, the larger and more anteroinferior measuring 1.4 cm and a smaller more cephalad a nd posterior measuring 1 cm. Both are T2 hyperintense, T1 hypointense and demonstrating mild delayed enhancement which remains low in signal intensity in the surrounding hepatic parenchyma on the delaye d images. Bilateral nonenhancing T2 hyperintense renal cysts, the largest a 7.9 x 3.3 cm parapelvic c yst at the mid left kidney. There is likely secondary mild caliectasis at the upper pole of the left kidney. Gallbladder, pancreas, spleen and bilateral adrenal glands are normal. Visualized portion of the bowels are unremarkable. No pathologically enlarged abdominal lymphadenopathy. Mild thoracolumbar dextroscoliosis with severe lumbosacral and moderate lumbar and lower thoracic spondylosis. IMPRESSION: 1. A couple lesions measuring 1.4 cm 1 cm in the right hepatic lobe which demonstrate mild delayed en hancement without washout which remains indeterminate but favors a benign etiology such as hemangioma s or focal nodular hyperplasia. Malignancy either primary or metastatic would be unlikely in the abse nce of either known liver disease or prior primary malignancy respectively. Consider follow-up with s ix-month pre and postcontrast MRI or CT. Reviewed, dictated and finalized at location [facility]. IMPRESSION: 1. A couple lesions measuring 1.4 cm 1 cm in the right hepatic lobe which demon strate mild delayed enhancement without washout which remains indeterminate but favors a benign etiology such as hemangiomas or focal nodular hyperplasia. Mal ignancy either primary or metastatic would be unlikely in the absence of either known liver disease or prior primary malignancy respectively. Consider follow- up with six-month pre and postcontrast MRI or CT.
== END 2022-03-05 09:40 | disposition home or self-care (01) ==
PROVIDERS: PCP Family Medicine; Visit Provider Physician Assistant
DX: K76.9 Liver disease, unspecified (principal)
CPT/HCPCS: 74183; A9577

== ENCOUNTER 2022-03-07 16:30 | Outpatient (RCR) | payer BC, SELFPAY ==
[2021-12-08 08:39] VITALS: PULSE 83
== END 2022-03-07 18:14 | disposition home or self-care (01) ==
LOC: ANHCPREHAB 16:30
PROVIDERS: PCP Family Medicine; Visit Provider Internal Medicine Cardiovascular Disease
DX: Z95.5 Presence of coronary angioplasty implant and graft (principal)
CPT/HCPCS: 93798

== ENCOUNTER 2023-07-05 08:04 | Emergency (ER) | payer OTHER, SELFPAY ==
--- NOTE | ~2023-07-05 | XR_ITS ---
Right ankle Technique: AP, oblique, and lateral views were obtained. Clinical History: Injury Findings: No definite acute fracture or dislocation is seen. Possible chronic tiny avulsion fracture at the medial malleolus. Ankle mortise and other visualized joint spaces are preserved. Soft tissues are otherwise unremarkable. Impression: No definite acute abnormality. Possible small chronic avulsion fracture at the medial malleolus. Reviewed, dictated and finalized at [facility]. 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 Possible small chronic avulsion fracture at the medial malleolus.
--- NOTE | ~2023-07-05 | XR_ITS ---
Right foot Technique: AP, oblique, and lateral views were obtained. Clinical History: Injury Findings: No acute fracture or dislocation is seen. Osseous alignment is anatomic. Joint spaces are p reserved without erosive or degenerative change. Soft tissues are unremarkable. Impression: Unremarkable right foot radiographs. Reviewed, dictated and finalized at location . 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
--- NOTE | 2023-07-05 08:13 | ED.LOWEXIN ---
HPI - Extremity Injury (Lower) General Chief Complaint: Extremity Injury, Lower Stated Complaint: Injured right foot Time Seen by Provider: 07/05/23 08:06 Source: patient Mode of arrival: ambulatory Limitations: no limitations History of Present Illness HPI Narrative: Patient is a 67-year-old male who presents with right lateral ankle and foot pain after missing the last few rungs of the ladder and coming down on foot last night. Patient reports elevating, using ice and taking Tylenol. Patient states his ankle is still swollen and is painful to bear weight. Denies any change in numbness or decreased sensation due to neuropathy Related Data Home Medications Medication Instructions Recorded Confirmed aspirin 81 mg tablet 81 mg PO DAILY 11/14/21 07/05/23 simvastatin 40 mg tablet 40 mg PO DAILY 03/12/22 07/05/23 Allergies Allergy/AdvReac Type Severity Reaction Status Date / Time No Known Allergies Allergy Unknown Unknown Uncoded 05/16/23 07:55 Review of Systems Review of Systems: All systems reviewed & are unremarkable except as noted in HPI and below Constitutional: Constitutional: Denies body ache(s), Denies chills, Denies fatigue, Denies fever(s), Denies headache(s), Denies malaise and Denies weakness Eyes: Eyes: Denies blurry vision, Denies irritation and Denies loss of vision ENT: Denies otalgia, Denies headache(s), Denies nasal discharge, Denies sinus pain and Denies sore throat Cardiovascular: Cardiovascular: Denies chest pain, Denies irregular heart rhythm and Denies dyspnea Respiratory: Respiratory: Denies dyspnea Gastrointestinal: Gastrointestinal: Denies abdominal pain, Denies melena, Denies hematochezia, Denies diarrhea, Denies nausea and Denies vomiting Musculoskeletal: Musculoskeletal: Denies back pain, Denies myalgias, Reports arthralgias, Reports joint swelling and Reports limited range of motion Integumentary/Breasts: Skin/Breast: Denies pruritus and Denies rash Neurologic: Denies headache(s), Denies loss of vision and Denies weakness Psychiatric: Psychiatric: Reports no additional psychiatric complaints Endocrine: Endocrine: Denies fatigue PMFSH Past Medical History Medical History Abnormal colonoscopy Hyperlipidemia Hypertension Hypertension Hypertension Prostate enlargement Prostatitis Testicular cancer Surgical History Surgical History History of orchiectomy Family History Family History Father Family history of cardiovascular disease Acute myocardial infarction, Onset Age: 46 Sibling Family history of lymphoma, Onset Age: 31 Sibling Family history of lymphoma Social History Social History Smoking status: Never smoker Second hand tobacco smoke exposure: No Alcohol intake: current Drinks per week: 20 Alcohol use details: 2-3 drinks each day (beer). denies any history of withdrawal. can stop for a few days for procedures. 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 There is no relevant family history pertinent to the presenting complaint. Exam Const: General: cooperative, healthy appearing, comfortable, no acute distress and well nourished Nutritional Appearance: well nouris
[2023-07-05 08:19] VITALS: BP 131/64; PULSE 77; RESP 16; TEMP 36.6; O2SAT 100
== END 2023-07-05 09:07 | disposition home or self-care (01) ==
PROVIDERS: Emergency Provider Nurse Practitioner Family; PCP Family Medicine
DX: S93.401A Sprain of unspecified ligament of right ankle, initial encounter (principal); S96.911A Strain of unspecified muscle and tendon at ankle and foot level, right foot, initial encounter; W11.XXXA Fall on and from ladder, initial encounter; E78.5 Hyperlipidemia, unspecified; I10 Essential (primary) hypertension; N40.0 Benign prostatic hyperplasia without lower urinary tract symptoms; Z85.47 Personal history of malignant neoplasm of testis; Z79.82 Long term (current) use of aspirin
CPT/HCPCS: 73610; 73630; 99213; G0463

== ENCOUNTER 2023-08-06 12:33 | Outpatient (CLI) | payer OTHER, SELFPAY ==
--- NOTE | ~2023-08-06 | MR_ITS ---
MRI of the right ankle Clinical history: Trauma Technique: Coronal proton-density and proton-density fat-sat images, axial proton-density and proton- density fat-sat images, and sagittal proton-density and proton-density fat-sat images were acquired. Findings: Syndesmotic ligaments appear intact. Anterior and posterior talofibular ligaments, and calc aneofibular ligament are intact. Deltoid ligament is intact. Medial flexor tendons, peroneal tendons, anterior extensor tendons, and Achilles tendon are intact. There is a vertically oriented fracture in the coronal plane involving the distal tibia, extending to the articular surface of the tibiotalar joint, nondisplaced. There are extensive surrounding marrow edema. No osteochondral lesion of the talar dome seen. Remaining osseous structures are intact. Small tibiotalar joint effusion present. Plantar fascia intact. Normal signal preserved in the sinus Tarsi. No soft tissue mass evident. There is soft tissue edema about the fracture site. Impression: Vertically oriented nondisplaced fracture of the distal tibia with intra-articular extension at the t ibiotalar joint, as detailed above. Reviewed, dictated and finalized at location . Impression: Vertically oriented nondisplaced fracture of the distal tibia with intra-articu lar extension at the tibiotalar joint, as detailed above.
== END 2023-08-06 12:34 ==
PROVIDERS: PCP Podiatrist Foot & Ankle Surgery; Visit Provider Podiatrist Foot & Ankle Surgery
DX: S82.301A Unspecified fracture of lower end of right tibia, initial encounter for closed fracture (principal); W17.89XA Other fall from one level to another, initial encounter
CPT/HCPCS: 73721

== ENCOUNTER 2024-03-23 14:27 | Emergency (ER) | payer OTHER, SELFPAY ==
[2024-03-23 14:37] VITALS: BP 146/60; PULSE 71; RESP 14; TEMP 36.3; O2SAT 100
--- NOTE | 2024-03-23 14:44 | ED.EAR ---
HPI - Ear Problem General Chief complaint: Ear Stated complaint: Ear Pain Time Seen by Provider: 03/23/24 14:44 Source: patient Mode of arrival: ambulatory Limitations: no limitations History of Present Illness HPI Narrative: 68-year-old male presents with complaint of decreased hearing to right ear, right ear aching for 2 days. Use Debrox without relief. All systems reviewed and negative except as noted above. Related Data Home Medications Medication Instructions Recorded Confirmed aspirin 81 mg tablet 81 mg PO DAILY 11/14/21 11/14/23 simvastatin 40 mg tablet 40 mg PO DAILY 03/12/22 11/14/23 Allergies Allergy/AdvReac Type Severity Reaction Status Date / Time No Known Allergies Allergy Unknown Unknown Uncoded 11/14/23 08:00 Review of Systems Review of Systems: CONSTITUTIONAL: Denies fever, chills, or sweats. EYES: Denies visual changes, redness, or discharge. ENT: Denies rhinorrhea, congestion, sore throat. Reports decreased hearing and pain to right ear. CARDIOVASCULAR: Denies chest pain, palpitations, or edema. RESPIRATORY: Denies cough or dyspnea. GASTROINTESTINAL: Denies abdominal pain, nausea, vomiting, or diarrhea. GENITOURINARY: Denies dysuria or hematuria. SKIN: Denies rash or itching. MUSCULOSKELETAL: Denies back pain, joint pain, or myalgia. NEUROLOGIC: Denies headache, numbness, or weakness. PSYCHIATRIC: Denies anxiety or depression. All other systems reviewed are negative, except as documented in HPI. [facility] Past Medical History Medical History Abnormal colonoscopy Hyperlipidemia Hypertension Hypertension Hypertension Prostate enlargement Prostatitis Testicular cancer Surgical History Surgical History History of orchiectomy Family History Family History Father Family history of cardiovascular disease Acute myocardial infarction, Onset Age: 46 Sibling Family history of lymphoma, Onset Age: 31 Sibling Family history of lymphoma Social History Social History Smoking status: Never smoker Second hand tobacco smoke exposure: No Alcohol intake: current Drinks per week: 20 Alcohol use details: 2-3 drinks each day (beer). denies any history of withdrawal. can stop for a few days for procedures. 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 There is no relevant family history pertinent to the presenting complaint. Exam Narrative: GENERAL: This is a well-nourished, well-developed patient, in no apparent distress. HEAD: normocephalic, atraumatic. EYES: PERRL. Sclera clear/white. Vision is grossly intact. EARS: External ears normal, left auditory canal is normal. Cerumen to right ear canal., after irrigation bilateral TMs normal without perforation. Hearing grossly intact. NOSE: External nose normal NECK: Neck supple, non-tender without lymphadenopathy, masses or thyromegaly. CARDIOVASCULAR: Regular rate and rhythm without murmurs, gallops, or rubs. RESPIRATORY: Clear to auscultation. Breath sounds equal bilaterally. No wheezes, rales, or rhonchi. SKIN: warm, Dry, intact with no suspicious lesions or rash, good texture and turgor. NEURO: awake, alert, and oriented to person, place and time. There were no obvious focal neurologic abnormalities. EXTREMITIES: No joint tenderness, effusion, or edema noted. Course Course Level of Care: Express Care Visit Vital Signs Vital signs: Vital Signs Temperature 36.3 C L 03/23/24 14:37 Pulse Rate 71 03/23/24 14:37 Respiratory Rate 14 03/23/24 14:37 Blood Pressure 146/60 H 03/23/24 14:37 Pulse Oximetry 100 03/23/24 14:37 Oxygen Delivery Room Air 03/23/24 14:37 Temperature 36.3 C L 03/23/24 14:37 Pulse Rate 71 03/23/24 14:37 Respiratory Rate 14 03/23/24 14:37 Blood Pressure 146/60 H 03/23/24 14:37 Pulse Oximetry 100 03/23/24 14:37 Oxygen Delivery Room Air 03/23/24 14:37 Reviewed Procedures Ear Wax Removal Right Ear: Ear Wax Removal Date: 03/23/24 Ear Wax Removal Time: 14:45 Cerumenolytic Used: other (Warm water) Results: Re-examined: cerumen removed completely TM Examination: TM(s) intact, normal appearance Ear Canal Exam: atraumatic Patient Tolerated Procedure: well Complications: no problems Technique: ear canal irrigated and ear canal curetted Medical Decision Making MDM Narrative Medical decision making narrative: Patient is aware of diagnosis, understands and agrees to treatment plan. Anticipatory guidance given. Patient agrees to follow-up as directed and is aware of reasons to seek care at the emergency department. Portions of this record may have been created with voice recognition software Vital Signs Vital Signs: Vital Signs Temperature 36.3 C L 03/23/24 14:37 Pulse Rate 71 03/23/24 14:37 Respiratory Rate 14 03/23/24 14:37 Blood Pressure 146/60 H 03/23/24 14:37 Pulse Oximetry 100 03/23/24 14:37 Oxygen Delivery Room Air 03/23/24 14:37 Temperature 36.3 C L 03/23/24 14:37 Pulse Rate 71 03/23/24 14:37 Respiratory Rate 14 03/23/24 14:37 Blood Pressure 146/60 H 03/23/24 14:37 Pulse Oximetry 100 03/23/24 14:37 Oxygen Delivery Room Air 03/23/24 14:37 Discharge Plan Discharge Clinical Impression: Hearing loss of right ear due to cerumen impaction Patient Disposition: Home, Self-Care Condition: Stable Instructions: General Patient Instructions Additional Instructions: Cerumen was removed from your right ear canal using warm water. All cerumen was removed. No ear infection was noted to your canal or ear drum. Follow-up your primary care physician as needed. Prescriptions: No Action simvastatin 40 mg tablet 40 mg PO DAILY aspirin 81 mg Tablet 81 mg PO DAILY tamsulosin 0.4 mg capsule 0.8 mg PO DAILY Qty: 180 1RF ezetimibe 10 mg tablet See Rx Instructions .ROUTE .COMPLEX Qty: 90 1RF Dose Instruction: TAKE 1 TABLET BY MOUTH DAILY Rx Instructions: TAKE 1 TABLET BY MOUTH DAILY metoprolol succinate 25 mg tablet extended release 24 hr See Rx Instructions .ROUTE .COMPLEX Qty: 90 1RF Dose Instruction: TAKE 1 TABLET BY MOUTH DAILY Rx Instructions: TAKE 1 TABLET BY MOUTH DAILY amoxicillin-pot clavulanate 875-125 mg tablet 1 tablet PO Q12H Qty: 20 0RF methylprednisolone 4 mg tablets,dose pack See Rx Instructions PO PER PKG DIR Qty: 21 0RF Rx Instructions: PO PER PKG DIR allopurinol 100 mg tablet See Rx Instructions .ROUTE .COMPLEX Qty: 90 1RF Dose Instruction: TAKE 1 TABLET BY MOUTH EVERY DAY Rx Instructions: TAKE 1 TABLET BY MOUTH EVERY DAY Follow-up/Referrals: Ysabel Hill DO [Primary Care Provider] - Time of Disposition: 14:55
== END 2024-03-23 14:59 | disposition home or self-care (01) ==
PROVIDERS: Emergency Provider Nurse Practitioner Family; PCP Family Medicine
DX: H61.21 Impacted cerumen, right ear (principal); E78.5 Hyperlipidemia, unspecified; I10 Essential (primary) hypertension; N40.0 Benign prostatic hyperplasia without lower urinary tract symptoms; Z85.47 Personal history of malignant neoplasm of testis; Z90.79 Acquired absence of other genital organ(s); Z79.82 Long term (current) use of aspirin
CPT/HCPCS: 69210; 99212; G0463

== ENCOUNTER 2024-06-18 00:33 | Day surgery (SDC) | payer OTHER, SELFPAY ==
[2024-05-12 09:42] VITALS: BMI 24.4
--- NOTE | 2024-06-17 15:41 | WPDANESEPPF ---
Anes - Initial Pre Proc Eval Procedure: Operation Date: 06/18/24 13:00 Proposed Procedures p Screening Colonoscopy - Jamie Roger MD Date/Time: 06/17/24 15:41 Surgeon: Jamie Roger MD Pre Op Diagnosis: colon screen Patient Data Age: 68 Gender: M Height: 1.88 m Weight: 86.2 kg Allergies Allergy/AdvReac Type Severity Reaction Status Date / Time No Known Allergies Allergy Verified 06/18/24 08:54 Home Medications ?Medication ?Instructions ?Recorded ?Confirmed ?Type aspirin 81 mg tablet 81 mg PO DAILY 11/14/21 05/14/24 History simvastatin 40 mg tablet 40 mg PO DAILY 03/12/22 05/14/24 History ezetimibe 10 mg tablet See Rx Instructions .Route 01/20/24 05/14/24 Rx .COMPLEX #90 tabs metoprolol succinate 25 mg See Rx Instructions .Route 01/20/24 06/18/24 Rx tablet,extended release 24 hr .COMPLEX #90 tabs allopurinol 100 mg tablet See Rx Instructions .Route 02/26/24 05/14/24 Rx .COMPLEX #90 tabs tamsulosin 0.4 mg capsule See Rx Instructions .Route 06/03/24 06/18/24 Rx .COMPLEX #180 caps Patient hx anesthesia problems: none Family hx anesthesia problems: none Results Review: All pre-operative results and documents have been reviewed as part of the pre-operative evaluation. [facility] Past Medical History Medical History (Updated 06/17/24 @ 15:42 by Han Kiran DO) Testicular cancer LILIANE on CPAP CAD (coronary artery disease) Hypertension Hypertension Hypertension Hyperlipidemia Prostatitis Prostate enlargement Testicular cancer Abnormal colonoscopy Surgical History Surgical History (Updated 06/17/24 @ 15:42 by Han Kiran DO) History of coronary artery stent placement x2021 History of orchiectomy Family History Family History Father Family history of cardiovascular disease Acute myocardial infarction, Onset Age: 46 Sibling Family history of lymphoma, Onset Age: 31 Sibling Family history of lymphoma Social History Social History Smoking status: Never smoker Second hand tobacco smoke exposure: No Alcohol intake: current Drinks per week: 20 Alcohol use details: 2-3 drinks each day (beer). denies any history of withdrawal. can stop for a few days for procedures. 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 Informed Consent: The patient's anesthetic plan and its attendant risks and benefits were discussed with the patient/family/POA. Questions were solicited and answers provided to the satisfaction of the patient/family/POA.
[2024-06-18 08:56] VITALS: BP 144/70; PULSE 67; RESP 18; TEMP 36.1; O2SAT 100
[2024-06-18] MEDS: LACTATED RINGERS 1,000 ML 150 ML IV CONT (09:04)
--- NOTE | 2024-06-18 09:25 | P.HP_ITS ---
History of Present Illness History of Present Illness Consent: Risks, benefits, and alternatives have been discussed and questions answered. Patient agrees to proceed with procedure. Chief complaint: colon screen Narrative: Riky Fong is a 68 year old male with last colonoscopy 8-9 years ago Review of Systems Review of Systems: All systems reviewed & are unremarkable except as noted in HPI and below PMFSH Past Medical History Medical History (Updated 06/18/24 @ 09:27 by Jamie Roger MD) Colon cancer screening Testicular cancer LILIANE on CPAP CAD (coronary artery disease) Hypertension Hypertension Hypertension Hyperlipidemia Prostatitis Prostate enlargement Testicular cancer Abnormal colonoscopy Surgical History Surgical History (Updated 06/17/24 @ 15:42 by Han Kiran DO) History of coronary artery stent placement x2021 History of orchiectomy Family History Family History Father Family history of cardiovascular disease Acute myocardial infarction, Onset Age: 46 Sibling Family history of lymphoma, Onset Age: 31 Sibling Family history of lymphoma Social History Social History Smoking status: Never smoker Second hand tobacco smoke exposure: No Alcohol intake: current Drinks per week: 20 Alcohol use details: 2-3 drinks each day (beer). denies any history of withdrawal. can stop for a few days for procedures. 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 Spiritual care concerns: No Meds Home Medications and Allergies Home Medications ?Medication ?Instructions ?Recorded ?Confirmed ?Type aspirin 81 mg tablet 81 mg PO DAILY 11/14/21 05/14/24 History simvastatin 40 mg tablet 40 mg PO DAILY 03/12/22 05/14/24 History ezetimibe 10 mg tablet See Rx Instructions .Route 01/20/24 05/14/24 Rx .COMPLEX #90 tabs metoprolol succinate 25 mg See Rx Instructions .Route 01/20/24 06/18/24 Rx tablet,extended release 24 hr .COMPLEX #90 tabs allopurinol 100 mg tablet See Rx Instructions .Route 02/26/24 05/14/24 Rx .COMPLEX #90 tabs tamsulosin 0.4 mg capsule See Rx Instructions .Route 06/03/24 06/18/24 Rx .COMPLEX #180 caps Allergies Allergy/AdvReac Type Severity Reaction Status Date / Time No Known Allergies Allergy Verified 06/18/24 08:54 Vital Signs Vital Signs - 24 hr 06/18/24 08:56 Temperature 97 F L Pulse Rate 67 Respiratory Rate 18 Blood Pressure 144/70 H Pulse Oximetry 100 Oxygen Delivery Room Air Exam Const: General: comfortable and no acute distress HENMT: Face/Nose/Sinus: Normal nares present Eyes: General: appearance normal, both eyes and all related structures Neck: Neck: no JVD Resp: Auscultation: clear to auscultation bilaterally Cardio: Rate: regular rate Rhythm: regular rhythm GI: Inspection: non-distended GI Palp: Yes Soft to palpation Skin: General skin exam: normal color Neuro: Speech: normal speech Extrem: General: normal to inspection Psych: Mental Status: mental status grossly normal Assessment and Plan Assessment and plan (1) Colon cancer screening: Code(s): Z12.11 - Encounter for screening for malignant neoplasm of colon Status: Acute Assessment and Plan: colonoscopy
[2024-06-18 09:50] VITALS: BP 112/65; PULSE 67; RESP 15; O2SAT 100
[2024-06-18 10:00] VITALS: BP 110/64; PULSE 61; RESP 18; O2SAT 100
[2024-06-18 10:10] VITALS: BP 125/70; PULSE 55; RESP 13; O2SAT 100
== END 2024-06-18 10:28 | disposition home or self-care (01) ==
PROVIDERS: PCP Family Medicine; Referring Provider Nurse Practitioner; Visit Provider Internal Medicine Gastroenterology
PROC: 0DJD8ZZ Inspection of Lower Intestinal Tract, Via Natural or Artificial Opening Endoscopic (ICD-10-PCS; CPT 45378; principal; 2024-06-18 10:30)
DX: Z12.11 Encounter for screening for malignant neoplasm of colon (principal); K51.40 Inflammatory polyps of colon without complications; K57.30 Diverticulosis of large intestine without perforation or abscess without bleeding; K64.8 Other hemorrhoids
CPT/HCPCS: 45385; 88305; J2003; J2704; J7120

== ENCOUNTER 2024-09-23 09:16 | Outpatient (CLI) | payer OTHER, SELFPAY ==
--- NOTE | ~2024-09-23 | US_ITS ---
Ultrasound of the left mid back CLINICAL HISTORY: Palpable mass TECHNIQUE: Targeted sonographic imaging performed at the area of clinical concern. FINDINGS: At the area of concern, inferior to the scapula, there is a 3.7 x 3.6 x 1.4 cm circumscribe d oval, wider than tall mass. Appearance is most compatible with lipoma. IMPRESSION: 3.7 x 3.6 x 1.4 cm mass at the area of concern in the left back, most compatible with lipoma. MR coul d be performed to further confirm fatty nature of lesion, as indicated. Reviewed, dictated and finalized at location M. IMPRESSION: 3.7 x 3.6 x 1.4 cm mass at the area of concern in the left back, most compatibl e with lipoma. MR could be performed to further confirm fatty nature of lesion, as indicated.
== END 2024-09-23 09:17 | disposition home or self-care (01) ==
LOC: GOSHIMG 09:16
PROVIDERS: PCP Family Medicine; Visit Provider Nurse Practitioner
DX: R22.2 Localized swelling, mass and lump, trunk (principal)
CPT/HCPCS: 76604